=== PATIENT | male | born 1995 | race Caucasian/White ===

== ENCOUNTER 2019-03-20 05:28 | Emergency (ER) | payer SELFPAY ==
[~2019-03-20] VITALS: Ht 172.7 cm; Wt 81.6 kg
[~2019-03-20 05:28] MED LIST: IBUP800T48 PO
[2019-03-20 05:31] VITALS: BP 131/79; PULSE 88; RESP 18; Ht 172.7 cm; Wt 81.6 kg
[2019-03-20] MEDS ORDERED: KETOROLAC 30 MG INJ IM STA (05:41)
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
== END 2019-03-20 07:06 | disposition home or self-care (01) ==
LOC: FTE 05:28
DX: S80.02XA Contusion of left knee, initial encounter (principal); V43.52XA Car driver injured in collision with other type car in traffic accident, initial encounter
CPT/HCPCS: 73562; 96372; 99284; J1885